=== PATIENT | female | born 1965 | race Caucasian/White ===

== ENCOUNTER 2021-11-23 15:08 | Emergency (ER) | payer BC ==
[~2021-11-23] VITALS: Ht 170.2 cm; Wt 81.0 kg
[2021-11-23 16:22] LABS: RBC, URINE 20-30 /hpf (0-3); SQUAMOUS EPITHELIAL CELL URINE MOD AMOUNT /hpf (SMALL AMT)
[2021-11-23 16:23] LABS: BACTERIA, URINE MOD AMOUNT; CALCIUM OXALATE CRYSTALS,URINE MOD AMOUNT /hpf
[2021-11-23 16:24] LABS: HYALINE CAST, URINE 0-1 /lpf (0-1); MUCUS, URINE SMALL AMOUNT (NEGATIVE)
[2021-11-23] MEDS ORDERED: ONDANSETRON 4MG ORAL DISINTEGRATING TAB PO ONE (17:35)
[2021-11-23] MEDS ORDERED: KETOROLAC TROMETHAMINE 10 MG TAB PO ONE ×2 (17:35→19:50)
[2021-11-23] MEDS ORDERED: FLOM0.4C39 PO (19:41)
[2021-11-23] MEDS ORDERED: KETO10TAB PO (19:41)
[2021-11-23] MEDS ORDERED: ONDA4TAB6 PO (19:41)
[2021-11-23 19:48] VITALS: BP 128/71
== END 2021-11-23 20:03 | disposition home or self-care (01) ==
LOC: M ED 15:08
DX: N20.2 Calculus of kidney with calculus of ureter (principal); K76.89 Other specified diseases of liver; Z87.442 Personal history of urinary calculi; Z91.048 Other nonmedicinal substance allergy status; Z79.899 Other long term (current) drug therapy